=== PATIENT | male | born 1945 | race Caucasian/White ===

== ENCOUNTER → 2019-05-26 | Outpatient (CLI) | payer MEDICARE, BC ==
[~2019-05-26] MED LIST: AMLODIPINE BESY10 MG PO; AMLODIPINE BESYL5 MG PO; ASPIR 8181 MG; BACLOFEN10 MG PO; FINASTERIDE5 MG PO; FISH OIL500 M1; FLOMAX0.4 MG PO; IOPAMIDOL 370 MG/ML 200 ML INFUS..BTL INJ ONE; LOSARTAN POTAS100 MG PO; NORCO 7.5-3251 EACH PO; OMEPRAZOLE40 MG PO; SODIUM CHLORIDE 0.9% 50ML 50 ML ONE; XANAX0.5 MG PO
[2019-05-26 17:09] LABS: BLOOD UREA NITROGEN 17 mg/dL (7-26); BUN/CREATININE RATIO 16 (6-25); CREATININE, SERUM 1.06 mg/dL (0.72-1.25); EST GLOMERULAR FILTRATION RATE > 60 ML/MIN (60-)
--- NOTE | 2019-05-26 18:25 | Diagnostic Imaging Report ---
EXAMINATION: Head CT without and with contrast. HISTORY: Dizziness, intermittent pressure headaches since February 2019, ringing in ears. COMPARISON: None. TECHNIQUE: Multidetector axial images were obtained without and with contrast from the foramen magnum to the vertex . The images were reconstructed using brain and bone algorithms. Thin section brain images were reformatted into coronal and sagittal planes. Image quality: Motion/streaking artifact limits the evaluation of the skull base and posterior cranial fossa. Dose modulation, iterative reconstruction, and/or weight based adjustment of the mA/kV was utilized to reduce the radiation dose to as low as reasonably achievable. Intravenous contrast: 100 mL of Isovue-370 FINDINGS: Parenchyma: 1. Few scatter and periventricular white matter hypodensities, most likely nonspecific chronic microvascular ischemic changes. No abnormal enhancement. 2. No mass or hemorrhage. No CT evidence of acute territorial vascular insult. Extra-axial spaces:No abnormal density. No extra-axial fluid collections Brain volume: Normal for age. Ventricles: No hydrocephalus or displacement. Arteries: No density suggestive of thrombus. Dural sinuses: No abnormal density. Foramen magnum: No mass, Chiari malformation, or basilar invagination. Sella: No obvious mass. Paranasal/mastoid sinuses: Imaged portions unremarkable. Skull/Scalp: No lytic or blastic lesions. No fractures. Approximately 2.9 cm heterogeneous density partially calcified well-circumscribed lesion in the subcutaneous soft tissues of the left occipital scalp, which likely corresponds to a sebaceous retention cyst, a smaller similar one in the left superior parietal scalp. IMPRESSION: Mild white matter chronic microvascular ischemic changes, otherwise no intracranial abnormalities, particularly no posterior fossa mass, hemorrhage or infarcts. Signed by: Dr. Claire Moore M.D. on 05/26/2019 6:23 PM
== END ==
LOC: CT 16:17
PROVIDERS: ATTEND Family Medicine
DX: R42 Dizziness and giddiness (principal)
CPT/HCPCS: 36415; 70460; 82565; 84520; Q9967